=== PATIENT | female | born 1945 | race Caucasian/White ===

== ENCOUNTER → 2018-05-29 | Outpatient (CLI) | payer OTHER ==
[~2018-05-29] VITALS: Ht 157.5 cm; Wt 77.3 kg
[~2018-05-29] MED LIST: ASPIR 8181 MG PO; ATENOLOL 100MG100 MG PO; BIOTIN1000 MCG PO; CINNAMON500 MG PO; CLARITIN10 MG PO; CRESTOR10 MG PO; DESCOVY 200-251 EACH PO; FISH OIL 1,001000 M2 PO; GARLIC1 EACH PO; PREZCOBIX 8001 EACH PO; TIVICAY50 MG PO; TUMS PO; VITAMINC500 PO
[2018-05-29 10:36] VITALS: BP 128/60
== END ==
LOC: SEN 09:07
DX: S52.91XA Unspecified fracture of right forearm, initial encounter for closed fracture (principal); I10 Essential (primary) hypertension; E78.00 Pure hypercholesterolemia, unspecified; X58.XXXA Exposure to other specified factors, initial encounter; Y93.89 Activity, other specified; Y92.89 Other specified places as the place of occurrence of the external cause; Y99.8 Other external cause status